=== PATIENT | female | born 1930 | race Caucasian/White ===

== ENCOUNTER → 2017-03-03 | Day surgery (SDC) | payer MEDICARE, OTHER ==
--- NOTE | 2017-03-01 20:08 | CR ---
DATE OF CONSULTATION: 03/01/2017 Preoperative consultation on Azael Pederson for Dr. Joya for cataract extractions 03/03/2017 and 03/29/2017. Thank you for asking me to see Ms. Azael Pederson in consultation prior to her cataract extractions. Ms. Pederson is, as you know, a kunal 86-year-old female with a past medical history of hypertension, hyperlipidemia, hyperglycemia, who reports that she has been in her usual state of good health. The patient reports she is already holding her aspirin. She believes she had to hold it for 1 week prior to surgical intervention. The patient has had recent adjustments in her blood pressure medicines. Reports she has had some lightheadedness if she stands up too quickly. She otherwise denies any chest pain, palpitations, syncope or presyncope. The patient has longstanding hyperhidrosis, she reports that this has not changed despite adjustments in her blood pressure pills. The patient is active, maintaining her home, recently babysat her son's dog for a week. She has not had any fevers or chills, rashes or shortness of breath. Review of systems is otherwise negative. PAST MEDICAL HISTORY: 1. Hypertension with CRI III. 2. Hyperlipidemia. 3. Osteopenia. 4. Hysterectomy 1971 for benign reasons. 5. Diverticulosis. 6. Family history coronary artery disease (CAD). 7. Remote history of smoking 20 pack year 1989. She quit. 8. Type 2 diabetes. 9. Cataracts. MEDICATIONS: - atenolol 25 mg one at bedtime - chlorthalidone 25 mg a half every morning - lisinopril 40 mg nightly - baby aspirin daily, which is on hold - atorvastatin 20 mg daily - multivitamin daily - fish oil 1000 mg daily - vitamin D3 2000 daily - calcium plus D 600 mg twice a day SOCIAL HISTORY: She is . Again former smoker, rarely consumes alcohol. Children are supportive. FAMILY HISTORY: Father had a heart attack times four, at 64. Mom of natural causes at 106. A sister has hypertension. DRUG ALLERGIES: None. PHYSICAL EXAMINATION: Overweight female in no acute distress. Vital signs are weight 160 with a BMI of 29, oxygen saturation is 98%, blood pressure 122/80. Her heart rate is 76. HEENT exam: Head is normocephalic. Neck is supple. Pupils equal, reactive to light. Extraocular movements are intact. She does wear upper dentures and eyeglasses. No thyromegaly, jugular venous distention (JVD) or carotid bruits. Respiratory: Clear to auscultation, resonant to percussion. Cardiovascular: Soft systolic murmur. Regular rate, rhythm. Breast exam: Deferred. Abdomen: Normoactive bowel sounds, soft, nontender. No hepatosplenomegaly. Gynecologic: Deferred. Extremities: Some osteoarthritis (OA) changes of the distal interphalangeal (DIP) joints, bunions, but no clubbing or edema. Dermatologic: Multiple seborrheic keratosis, alexander angiomas. She is diffusely sweating which she reports is chronic and stable for her and a lifelong history. Neurologically: Alert and oriented. Cranial nerves II-XII are intact. LABORATORY DATA: 03/01/2017: Normal CBC, A1c 6.6, magnesium 1.9. Metabolic profile: Sugar is 108, GFR 39, calcium is 10.4. IMPRESSION: Ms. Ami Pederson, remarkably healthy 86-year-old female with past medical history of type 2 diet controlled diabetes, hypertension with CRI III, hyperlipidemia, family history, and advanced age is at low risk for cardiovascular complications and is optimized for surgery. Risk can be further minimized by the followin. Hypertension with CRI III. She will hold all morning medications. Because of some mild orthostasis with standing I am going to lower her atenolol to 25 mg one-half at bedtime following her first surgery. 2. Hyperlipidemia. She will take her statin as usual the evening prior to surgery. Aspirin has been on hold for a week. Fish oil she will hold from now until surgery as well. 3. Diabetes type 2. She is diet controlled. Sugars improved. No need for further pharmacologic therapy. 4. Osteopenia. Hold calcium and vitamin D morning of surgery. 5. Osteoarthritis (OA), degenerative joint disease (DJD). She is not on nonsteroidal anti-inflammatory drugs (NSAIDS). She will use Tylenol and topical therapies only if needed. 6. Hyperhidrosis, chronic, stable, lifelong. No need for further evaluation or treatment. Thank you very much for this consultation. Please call with questions or concerns.
[~2017-03-03] VITALS: Ht 158.8 cm; Wt 71.7 kg
[~2017-03-03] MED LIST: ACETAMINOPHEN 325 MG TAB PO PRN; ASPI1TAB PO; ATEN25TA PO; ATOR1TAB21 PO; AcetaZOLAMIDE 500 MG ER CAP PO ONE; BSS with VANC/TOB/EPI for EYE CASES IR ONE; CHLO125TA PO; CITRTAB18 PO; D5W/0.2% SODIUM CHLORIDE 250 ML IV SCH; FISH100049 PO; HEALON DUET (HEALON 10MG/ML 0.55ML & HEALON ENDOCOAT 30MG/ML 0.85ML) As Ordered ONE; KETOROLAC 0.5% OPHTH SOLN OD ONE; LIDOCAINE 1% SDV 5 ML VIAL As Ordered ONE; LISI40TAB PO; MIDAZOLAM INJ 2 MG/2 ML VIAL (J2250) As Ordered ONE; MOXIFLOXACIN IN BSS 0.25MG/0.25ML INTRACAMERAL INJ (OR EYE ONLY)(J2280) As Ordered ONE; MULT1TAB9 PO; OFLOXACIN 0.3 % (OCUFLOX) OPTH SOL 5ML OD ONE; POVIDONE-IODINE 5% OPHTH PREP SOL 30ML As Ordered ONE; PROPARACAINE 0.5% OPHTH SOL 15ML OD PRN; TRIAMCINOLONE PRES FR 40 MG/ML 1ML(TRIESENCE)(OR EYE ONLY)(J3300 PER 1MG) As Ordered ONE; TRIMETHOBENZAMIDE 300 MG CAP PO PRN; VITA200038 PO; fentaNYL 100 MCG/2 ML INJECTION (J3010) As Ordered ONE
[2017-03-03] MEDS: LIDOCAINE 4% INJ 5 ML AMP OU ONE ×2 (06:59→07:10)
[2017-03-03] MEDS: CYCLOPENTOLATE 2% OPHTH SOLN OD ONE ×2 (07:00→07:15)
[2017-03-03] MEDS: TROPICAMIDE 1% OPHTH SOLN 2 ML OD ONE ×2 (07:00→07:15)
[2017-03-03] MEDS: PHENYLEPHRINE 2.5% OPHTH SOL 2ML OD ONE ×2 (07:00→07:15)
[2017-03-03 09:50] VITALS: BP 137/69
--- NOTE | 2017-03-03 13:07 | RO ---
DATE OF PROCEDURE: 03/03/2017 PREOPERATIVE DIAGNOSES: Cataract right eye. Miosis right eye. POSTOPERATIVE DIAGNOSES: Cataract right eye. Miosis right eye. PROCEDURE: Phacoemulsification with intraocular lens implantation of PCB00, 22.5 diopters, and placement of the Malyugin ring, 7 mm in the right eye. SURGEON: Kenisha Joya MD [employer]HALT BLENDER: None. ANESTHESIA: Local monitored anesthesia care (MAC). DESCRIPTION OF PROCEDURE: Patient was brought to the operating room and laid in supine position. The right eye was prepped and draped in a sterile fashion for ophthalmic surgery, and a lid speculum was placed. Sideport incision was then made, and EndoCoat was injected into the anterior chamber. Temporal clear corneal incision was then made with a 2.5 mm keratome, followed by capsulorrhexis. This was followed by hydrodissection and phacoemulsification in a [id number] method within the capsular bag. Excess cortical material was then aspirated using irrigation and aspiration cannula. Prior to doing the capsulorrhexis, a Malyugin ring 7 mm was placed in the anterior chamber to dilate the pupil. After the cortical material was aspirated and intraocular lens placed, Malyugin ring was removed. Excess viscoelastic was aspirated again, and wound was hydrated. No leaks were noted. Intracameral moxifloxacin was given, and a sub-Tenon injection of Kenalog was given at the end of the case. Lid speculum removed and patient returned to recovery room in stable condition. Edited: [facility] 03/08/2017 0915
== END | disposition home or self-care (01) ==
LOC: M SDC 06:53
PROVIDERS: ATTEND Ophthalmology
DX: H25.9 Unspecified age-related cataract (principal); H57.03 Miosis; I10 Essential (primary) hypertension; E78.00 Pure hypercholesterolemia, unspecified; Z87.891 Personal history of nicotine dependence; Z79.899 Other long term (current) drug therapy; Z79.82 Long term (current) use of aspirin
CPT/HCPCS: 66982; J2250; J2280; J3010; J3300; V2632

== ENCOUNTER → 2017-03-29 | Day surgery (SDC) | payer MEDICARE, OTHER ==
[~2017-03-29] VITALS: Ht 158.8 cm; Wt 73.9 kg
[~2017-03-29] MED LIST changes: +CYCLOPENTOLATE 2% OPHTH SOLN 2ML BTL OS ONE; +D5W/0.2% SODIUM CHLORIDE 250 ML IV ONE; -D5W/0.2% SODIUM CHLORIDE 250 ML IV SCH; -KETOROLAC 0.5% OPHTH SOLN OD ONE; +KETOROLAC 0.5% OPHTH SOLN OS ONE; +LIDOCAINE 4% INJ 5 ML AMP OU ONE; -OFLOXACIN 0.3 % (OCUFLOX) OPTH SOL 5ML OD ONE; +OFLOXACIN 0.3 % (OCUFLOX) OPTH SOL 5ML OS ONE; +PHENYLEPHRINE 2.5% OPHTH SOL 2ML OS ONE; -PROPARACAINE 0.5% OPHTH SOL 15ML OD PRN; +PROPARACAINE 0.5% OPHTH SOL 15ML OS PRN; +TROPICAMIDE 1% OPHTH SOLN 2ML OS ONE
[2017-03-29 10:05] VITALS: BP 155/68
--- NOTE | 2017-03-29 10:09 | RO ---
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 POSTPROCEDURE DIAGNOSES: Cataract left eye and myosis left eye. PROCEDURE: Phacoemulsification with intraocular lens implantation, PCB 00 23 diopers, and Malyugin ring 7 mm to dilate pupil. SURGEON: Kenisha Joya MD [employer] COORDINATOR: ANESTHESIA: INDICATION: COMPLICATIONS: None. DESCRIPTION OF PROCEDURE: Procedure in detail: The patient was brought to the operating room, laid in supine position. The left eye was prepped and draped in a sterile fashion for ophthalmic surgery. Lid speculum was placed. A sideport incision was made, and EndoCoat was injected into the anterior chamber. A temporal clear corneal incision was made with a 2.5 mm keratome, followed by placement of the Malyugin ring because of some miosis. After the Malyugin ring was successfully placed, capsulorrhexis was done, followed by hydrodissection. Phacoemulsification was then done in a [id number]-[id number] method within the capsular bag. Excess corticol material was then aspirated and intraocular lens placed in the capsular bag. Malyugin ring was then removed, and the excess viscoelastic was aspiration. The wound was hydrated, lid speculum removed, and the patient returned to the recovery room in stable condition.
== END | disposition home or self-care (01) ==
LOC: M SDC 06:55
PROVIDERS: ATTEND Ophthalmology
DX: H26.9 Unspecified cataract (principal); H57.03 Miosis; I10 Essential (primary) hypertension; E78.5 Hyperlipidemia, unspecified; Z79.82 Long term (current) use of aspirin; Z87.891 Personal history of nicotine dependence; Z79.899 Other long term (current) drug therapy
CPT/HCPCS: 66982; J2250; J2280; J3010; J3300; V2632

== ENCOUNTER → 2017-08-26 | Outpatient (REF) | payer MEDICARE, OTHER ==
[~2017-08-26] MED LIST changes: -ACETAMINOPHEN 325 MG TAB PO PRN; -AcetaZOLAMIDE 500 MG ER CAP PO ONE; -BSS with VANC/TOB/EPI for EYE CASES IR ONE; -CYCLOPENTOLATE 2% OPHTH SOLN 2ML BTL OS ONE; -D5W/0.2% SODIUM CHLORIDE 250 ML IV ONE; -HEALON DUET (HEALON 10MG/ML 0.55ML & HEALON ENDOCOAT 30MG/ML 0.85ML) As Ordered ONE; -KETOROLAC 0.5% OPHTH SOLN OS ONE; -LIDOCAINE 1% SDV 5 ML VIAL As Ordered ONE; -LIDOCAINE 4% INJ 5 ML AMP OU ONE; -MIDAZOLAM INJ 2 MG/2 ML VIAL (J2250) As Ordered ONE; -MOXIFLOXACIN IN BSS 0.25MG/0.25ML INTRACAMERAL INJ (OR EYE ONLY)(J2280) As Ordered ONE; -OFLOXACIN 0.3 % (OCUFLOX) OPTH SOL 5ML OS ONE; -PHENYLEPHRINE 2.5% OPHTH SOL 2ML OS ONE; -POVIDONE-IODINE 5% OPHTH PREP SOL 30ML As Ordered ONE; -PROPARACAINE 0.5% OPHTH SOL 15ML OS PRN; -TRIAMCINOLONE PRES FR 40 MG/ML 1ML(TRIESENCE)(OR EYE ONLY)(J3300 PER 1MG) As Ordered ONE; -TRIMETHOBENZAMIDE 300 MG CAP PO PRN; -TROPICAMIDE 1% OPHTH SOLN 2ML OS ONE; -fentaNYL 100 MCG/2 ML INJECTION (J3010) As Ordered ONE
== END ==
LOC: M LAB REF 17:37
PROVIDERS: ATTEND Internal Medicine
DX: L63.0 Alopecia (capitis) totalis (principal); E83.52 Hypercalcemia

== ENCOUNTER → 2020-04-16 | Outpatient (REF) | payer MEDICARE, OTHER ==
[~2020-04-16] MED LIST changes: -ASPI1TAB PO; +ASPI81TA26 PO; +LISI40TA PO; -LISI40TAB PO
== END ==
LOC: M LAB REF 16:52
PROVIDERS: ATTEND Nurse Practitioner Family
DX: L72.3 Sebaceous cyst (principal); L08.9 Local infection of the skin and subcutaneous tissue, unspecified

== ENCOUNTER → 2022-04-23 | Outpatient (CLI) | payer MEDICARE, OTHER ==
[~2022-04-23] MED LIST changes: -LISI40TA PO; +LISI40TA4 PO
== END ==
LOC: M WHC 12:54
PROVIDERS: ATTEND Internal Medicine
DX: M85.851 Other specified disorders of bone density and structure, right thigh (principal); M85.852 Other specified disorders of bone density and structure, left thigh